=== PATIENT | male | born 1970 | race Caucasian/White ===

== ENCOUNTER 2019-01-29 10:30 | Emergency (ER) | payer BC ==
[~2019-01-29] VITALS: Ht 185.4 cm; Wt 122.7 kg
[2019-01-29 10:36] VITALS: TEMP 97.9
[2019-01-29 10:56] LABS: HEMATOCRIT 45.8 % (42.0-52.0); HEMOGLOBIN 15.2 g/dl (13.5-18.0); MEAN CELL VOLUME 87 fl (80.0-100.0); MEAN CORPUSCULAR HEMOGLOBIN 29 pg (27.0-31.0); MEAN CORPUSCULAR HGB CONC 33 g/dl (33.0-37.0); MEAN PLATELET VOLUME 10.7 fl (7.4-10.4); PLATELET COUNT 290 K/mm3 (130-400); RED BLOOD COUNT 5.24 M/mm3 (4.20-5.60); REDCELL DISTRIBUTION WIDTH-CV 12.8 % (11.5-14.5)
[2019-01-29 11:00] LABS: PROTHROMBIN TIME 11.1 SECONDS (9.7-12.8)
[2019-01-29 11:02] LABS: PARTIAL THROMBOPLASTIN TIME 28.6 SECONDS (26.0-37.0)
[2019-01-29 11:06] LABS: BILIRUBIN,TOTAL 0.3 mg/dL (0.0-1.0); CALCIUM 8.9 mg/dL (8.4-10.2); CREATININE, serum 0.93 (0.66-1.25); POTASSIUM 3.5 mmol/L (3.4-5.0)
[2019-01-29 11:31] LABS: TROPONIN-I 0.064 ng/mL (0.000-0.035)
[2019-01-29 11:40] VITALS: BP 158/72; PULSE 80
[2019-01-29 13:29] LABS: BAND 2 % (0-10); BASOPHIL 1 % (0-2); LYMPHOCYTE 53 % (20.0-51.0); NEUTROPHILS 39 % (42.0-75.2); PLATELET ESTIMATE NORMAL (NORMAL)
== END 2019-01-29 11:40 | disposition short-term general hospital (02) ==
LOC: COL.ER 10:30
PROVIDERS: Emergency Medicine
DX: I21.19 ST elevation (STEMI) myocardial infarction involving other coronary artery of inferior wall (principal)
CPT/HCPCS: J1644; J2405; J3010; J3101; J7030